=== PATIENT | female | born 1945 | race Caucasian/White ===

== ENCOUNTER → 2022-01-15 15:32 | Outpatient (CLI) | payer OTHER, SELFPAY ==
--- NOTE | 2022-01-15 15:35 | DI.MRI.S_ITS ---
PROCEDURE: MR LUMBAR SPINE WO CON INDICATIONS: Multilevel spinal stenosis facet cyst L4-5 TECHNIQUE: Noncontrast sagittal T1 spin echo and T2 fast echo, sagittal STIR, axial T1 and T2 fast spin echo through the lumbar spine. In cases with scoliosis, additional coronal T2 fast spin echo may be performed. COMPARISON: [facility], MR, MR LUMBAR SPINE WO CON, 09/28/2016, 14:08. Outside Film, CR, XR LUMBAR SPINE 2 OR 3 VIEWS, 09/24/2021, 12:00. FINDINGS: Image quality: Excellent. 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 Mild dextro curvature centered at L3. Trace degenerative anterolisthesis of L2 on L3. Trace degenerative anterolisthesis of L4 on L5. Bone Marrow: Marrow is of normal overall signal. No acute vertebral body compression fractures. Spinal Cord: Conus medullaris terminates at the T12-L1 level. Visualized cord demonstrates normal signal and size. Paraspinous Soft Tissues: No paravertebral masses. T10-T11: No canal stenosis or foraminal stenosis. T11-T12: No canal stenosis or foraminal stenosis. T12-L1: No canal stenosis or foraminal stenosis. L1-L2: Interval development of diffuse disc bulge and superimposed right paracentral disc protrusion with development of mild to moderate canal stenosis. Bilateral facet hypertrophy. Moderate to severe right foraminal narrowing and moderate left foraminal narrowing with flattening deformity on the exiting bilateral L1 nerve roots. L2-L3: Stable findings. Anterolisthesis of L2 on L3. Posterior disc bulge. Prominent facet hypertrophy. Moderate to severe canal stenosis. [id number] right foraminal narrowing and moderate left foraminal narrowing with flattening deformity on the exiting left L2 nerve root. L3-L4: Stable findings. Severe disc height loss. Posterior disc post osteophyte. Prominent bilateral facet hypertrophy. Moderate to severe foraminal narrowing. A left foraminal disc protrusion is again noted to contribute to severe left foraminal narrowing and impingement on the left L3 nerve root in the left foramen. L4-L5: Interval improvement. There is trace anterolisthesis of L4 on L5. There is mild disc bulge. There is prominent bilateral facet hypertrophy. Previous bilateral anterior medially directed facet joint cysts are no longer present. This decreases the central canal stenosis, which is still moderate to severe. Moderate right and [id number] left foraminal narrowing. L5-S1: Bilateral facet hypertrophy. No central canal stenosis. Moderate right foraminal narrowing. IMPRESSION: 1. There is extensive degenerative change, as before. There is multilevel prominent facet arthropathy. 2. The appearance of L4-L5 is improved, in that bilateral anterior medially directed facet joint cysts are no longer present. Central canal stenosis, previously severe, is now moderate to severe. 3. Progression progressive findings at L1-L2, with development of mild to moderate canal stenosis. 3. Stable canal stenosis at L2-L3 and L3-L4, moderate to severe. 4. Multilevel foraminal narrowing as described above. This includes a left foraminal disc protrusion at L3-L4 contributing to severe left foraminal narrowing. Dictated by: Jasbir Goetz M.D. on 01/15/2022 at 16:30 Approved by: Jasbir Goetz M.D. on 01/15/2022 at 16:46
== END ==
PROVIDERS: PCP Family Medicine; Referring Provider Physical Medicine & Rehabilitation; Visit Provider Physical Medicine & Rehabilitation
DX: M51.26 Other intervertebral disc displacement, lumbar region (principal); M47.816 Spondylosis without myelopathy or radiculopathy, lumbar region; M48.061 Spinal stenosis, lumbar region without neurogenic claudication
CPT/HCPCS: 72148

== ENCOUNTER → 2022-02-11 10:37 | Outpatient (CLI) | payer OTHER, SELFPAY ==
[2022-02-11 12:15] LABS: COVID19 -Nasal RAPID Negative (Negative)
== END ==
PROVIDERS: PCP Family Medicine; Visit Provider Physical Medicine & Rehabilitation
DX: Z20.822 Contact with and (suspected) exposure to COVID-19 (principal)
CPT/HCPCS: 87635; C9803

== ENCOUNTER 2022-02-13 14:46 | Outpatient (CLI) | payer OTHER, SELFPAY ==
[2022-02-13] VITALS (9 sets, daily range): BP systolic 118–181; BP diastolic 54–84; PULSE 66–80; RESP 17–24; TEMP 37; O2SAT 98–100
--- NOTE | 2022-02-13 14:47 | DI.RAD.S_ITS ---
PROCEDURE: PAIN L INTERLAMINAR/CAUDAL INJ INDICATIONS: SPONDYLOSIS COMPARISON: [facility], MR, MR LUMBAR SPINE WO CON, 01/15/2022, 15:46. Outside Film, CR, XR LUMBAR SPINE 2 OR 3 VIEWS, 09/24/2021, 12:00. FINDINGS: Fluoroscopic spot filming was performed to verify placement of a spinal needle at the L4-L5 level, as labeled on the films. Appropriate location of the needle tip was confirmed by injection of iodinated contrast. IMPRESSION: Intraprocedural examination within normal limits. Dictated by: Evan Wilson M.D. on 02/13/2022 at 15:26 Approved by: Evan Wilson M.D. on 02/13/2022 at 15:26
[2022-02-13] MEDS: MIDAZOLAM 2 MG/2 ML VIAL (15:37)
[2022-02-13] MEDS: IOPAMIDOL 15 ML VIAL 3 ML INJ (15:38)
[2022-02-13] MEDS: BUPIVACAINE 0.25% (PF) VIAL 2 ML INJ (15:39)
[2022-02-13] MEDS: DEXAMETHASONE 10 MG/ML VIAL 20 MG INJ (15:39)
[2022-02-13] MEDS: BETAMETHASONE 30 MG/5 ML MDV 6 MG INJ (15:39)
--- NOTE | 2022-02-13 15:51 | P.PCN_ITS ---
Date/Time/Diagnoses Date of procedure: 02/13/22 Time of procedure: 15:51 Pre-procedure diagnosis: 1. HNP WITH RADICULAR FEATURES, 2. MULTILEVEL CENTRAL STENOSIS, Post-procedure diagnosis: same Procedure Notes Procedure: 1. FLUOROSCOPICALLY GUIDED CONTRAST CONTROLLED INTERLAMINAR EPIDURAL STEROID INJECTION -L4/5 Indications: Christie is referred by Dr. Tyler for treatment of Bilateral Foraminal Stenosis R>L LE symptoms. Physician: Manuel Mathur Total Fluoroscopy time (seconds): 8 Total sedation minutes: 9 Complications: none Procedure in detail & Post-procedure care: FINDINGS Multilevel Central Spinal Stenosis with Nerve Root Compression DESCRIPTION OF PROCEDURE Fluoroscopically guided, contrast-controlled L4/5 translaminar epidural steroid injection. Following review of allergy and review of potential side effects and complications, including, but not necessarily limited to, infection, allergic reaction, local tissue breakdown, temporary as well as permanent nerve injury, paralysis, stroke and possible , the patient indicated that the patient understood and agreed to proceed. An informed consent document was signed by the patient, witnessed by a nurse, and placed in the patient's chart. Additionally, other treatment options including modalities, medications, and physical therapy were reviewed with the patient. After review of previous anaesthesic history and IV conscious sedation the patient was deemed safe to proceed with today?s procedure with IV conscious sedation as ASA class II designation. Safety time-out was performed to confirm patient ID, procedure to be performed and site of procedure. IV sedation was accomplished with a combination of 2mg of Versed was administered by the RN after DO order, titrated to patient comfort during the course of the procedure while the patient remained responsive to all verbal commands In the prone position, following sterile prep and drape of the lumbar region, the L4/5 translaminar space was identified fluoroscopically. The skin was anesthetized via a 25-gauge, 1.5inch needle with 1% lidocaine solution. At this point, a 22-gauge short bevel spinal needle was atraumatically introduced and advanced under fluoroscopic guidance into the region of the L4/5 translaminar space. Depth was confirmed on lateral view. Radiological data, including multiple fluoroscopic views of the lumbar spine, reveal a spinal needle at the L4/5 translaminar space. Lateral views then show placement of the needle in the epidural space. Subsequent views show contrast material flowing superiorly and inferiorly in the epidural space. No vascular or intrathecal uptake is observed. At this point, using loss of resistance technique with saline and air, the epidural space was entered. This was confirmed following negative aspiration with injection of approximately 1.5cc of Isovue 200, showing excellent epidural flow without vascular or intrathecal uptake. At this point, 1cc of 1% lidocaine solution combined with 3cc or 20mg of dexamethasone and 6mg betamethasone was injected without incident. The patient tolerated the procedure well without signs or symptoms of complications prior to transfer to the recovery area continued monitoring without incident. The patient was then transferred to the recovery area where they were observed for an appropriate period of time after the injection. The patient reported a VAS score of 6 prior to the procedure and a post- procedure VAS of 0. POST OP INSTRUCTIONS The patient was provided a Pain Log to continue to record their response to the target-specific procedure prior to follow-up visit with their referring physician. Additionally, specific post-injection care instructions and a contact number to our office were provided if concerns arise regarding possible complications associated with the procedure are suspected.
== END 2022-02-13 16:10 | disposition home or self-care (01) ==
PROVIDERS: PCP Family Medicine; Referring Provider Physical Medicine & Rehabilitation; Visit Provider Physical Medicine & Rehabilitation
DX: M51.16 Intervertebral disc disorders with radiculopathy, lumbar region (principal); M48.061 Spinal stenosis, lumbar region without neurogenic claudication
CPT/HCPCS: 62323; J0702; J1100; J2250